=== PATIENT | male | born 1950 ===

== ENCOUNTER 2016-08-08 11:36 | Emergency (ER) | payer OTHER ==
[2016-08-08 11:54] VITALS: BP 135/67; PULSE 80; RESP 18; TEMP 98.1; O2SAT 100
[2016-08-08] MEDS ORDERED: Sodium Chloride 0.9% 1,000 ML IV STA (12:31)
--- NOTE | 2016-08-08 12:38 | ED PDOC ---
HPI: General Adult Time Seen by Provider: 08/08/16 12:09 Chief Complaint (Nursing): Male Genitourinary Chief Complaint (Provider): R lower abd pain History Per: Patient History/Exam Limitations: no limitations Onset/Duration Of Symptoms: Days (5) Have you had recent travel within the past 21 days to any of the following countries: [place], [place], [place] or [place]?: No Current Symptoms Are (Timing): Still Present Additional Complaint(s): R lower groin pain ongoing for 5 days. More now. [place] a bump there. That bump is now gone. No nausea, vomit, diarrhea, weakness, testicular pain, back pain, dysuria. No injury. Reading newspaper when entered room. Past Medical History Reviewed: Nursing Documentation, Vital Signs Vital Signs: Last Vital Signs Temp 98.1 F 08/08/16 11:53 Pulse 80 08/08/16 11:53 Resp 18 08/08/16 11:53 BP 135/67 08/08/16 11:53 Pulse Ox 100 08/08/16 12:41 - Medical History PMH: No Chronic Diseases - Surgical History Surgical History: No Surg Hx - Family History Family History: States: Unknown Family Hx - Social History Current smoker - smoking cessation education provided: No Alcohol: None Drugs: Denies - Home Medications Home Medications: Ambulatory Orders Medication Instructions Recorded Naproxen 500 mg PO BID #30 tab 05/28/16 - Allergies Allergies/Adverse Reactions: Allergies Allergy/AdvReac Type Severity Reaction Status Date / Time No Known Allergies Allergy Verified 08/08/16 12:16 Review of Systems ROS Statement: Except As Marked, All Systems Reviewed And Found Negative Gastrointestinal: Positive for: Abdominal Pain Physical Exam - Reviewed Nursing Documentation Reviewed: Yes Vital Signs Reviewed: Yes - Physical Exam Appears: Positive for: Non-toxic, No Acute Distress Head Exam: Positive for: ATRAUMATIC, NORMAL INSPECTION, NORMOCEPHALIC Skin: Positive for: Normal Color, Warm, DRY Eye Exam: Positive for: EOMI, Normal appearance, PERRL ENT: Positive for: Normal ENT Inspection Neck: Positive for: Normal, Painless ROM Cardiovascular/Chest: Positive for: Regular Rate, Rhythm Respiratory: Positive for: CNT, Normal Breath Sounds Gastrointestinal/Abdominal: Positive for: Bowel Sounds, Soft, Tenderness (Mild R groin; no abscess, boil, or "bump" identified) Male Genital Exam: Negative for: hernia mass (not palpated), scrotum tenderness (R), scrotum tenderness (L), testicular tenderness (R), testicular tenderness (L ) Back: Positive for: Normal Inspection. Negative for: L CVA Tenderness, R CVA Tenderness Extremity: Positive for: Normal ROM Neurologic/Psych: Positive for: Alert, Oriented - Laboratory Results Result Diagrams: 08/08/16 12:47 08/08/16 12:47 Interpretation Of Abn Labs: no acute - ECG O2 Sat by Pulse Oximetry: 100 Pulse Ox Interpretation: Normal - Progress ED Course And Treament: Bilateral fat containing inguinal hernias right larger than left. Inflammatory changes limited to the right inguinal canal. Negative study for bowel obstruction or other acute/ significant abnormality. 1447: Stable. AAOx3. Pain free. Tolerated po. Spoke with Dr. Galvan. Made aware of findings and CT. Wants pt. to be dc and fu clinic. Pt. ambulated with no issues. Disposition - Clinical Impression Clinical Impression: Hernia - Patient ED Disposition Is Patient to be Admitted: No Counseled Patient/Family Regarding: Studies Performed, Diagnosis, Need For Followup - Disposition Referrals: [facility] [Outside] - 08/09/16 Kong Galvan MD [Staff Provider] - 08/09/16 Disposition: Routine/Home Disposition Time: 14:48 Condition: STABLE Additional Instructions: Return if not better in 3 days. Instructions: Inguinal Hernia (ED)
[2016-08-08 13:05] LABS: BASO % 0.3 % (0.0-2.0); EOS # 0.2 K/uL (0.0-0.7); EOS % 3.9 % (0.0-4.0); HEMATOCRIT 41.7 % (35.0-51.0); LYMPH # 1.9 K/uL (1.0-4.3); LYMPH % 31.5 % (20.0-40.0); MEAN CELL VOLUME 82.2 fl (80.0-94.0); MEAN CORPUSCULAR HEMOGLOBIN 26.7 pg (27.0-31.0); MEAN CORPUSCULAR HGB CONC 32.5 g/dL (33.0-37.0); MEAN PLATELET VOLUME 9.4 fl (7.2-11.7); MONO # 0.5 K/uL (0.0-0.8); NEUT # 3.3 K/uL (1.8-7.0); NEUT % 55.3 % (50.0-75.0); NRBC % 0.2 % (0.0-0.0); RED CELL DISTRIBUTION WIDTH 13.6 % (11.5-14.5); WHITE BLOOD COUNT 5.9 K/uL (4.8-10.8)
[2016-08-08 13:21] LABS: ALB/GLOB RATIO 1.3 (1.0-2.1); ALKALINE PHOSPHATASE 74 U/L (38-126); ALT/SGPT 17 U/L (21-72); AST/SGOT 30 U/L (17-59); BILIRUBIN,TOTAL 0.4 mg/dl (0.2-1.3); BLOOD UREA NITROGEN 16 mg/dl (9-20); CALCIUM 9.2 mg/dL (8.4-10.2); CARBON DIOXIDE 30 mmol/L (22-30); CHLORIDE 102 mmol/L (98-107); GFR AFRICAN-AMERICAN > 60; GLUCOSE,RANDOM 91 mg/dL (75-110); POTASSIUM 4.5 MMOL/L (3.6-5.0); SODIUM 145 mmol/l (132-148); TOTAL PROTEIN 7.6 G/DL (6.3-8.2)
--- NOTE | 2016-08-08 14:25 | CT ---
PROCEDURE: CT Abdomen and Pelvis without intravenous contrast HISTORY: hernia possible R groin; painful COMPARISON: None. TECHNIQUE: Unenhanced study. Neither oral nor intravenous contrast administered. Sensitivity and specificity for acute inflammatory processes limited by the absence of oral and intravenous contrast. Radiation dose: Total exam DLP = 408.57 mGy-cm. This CT exam was performed using one or more of the following dose reduction techniques: Automated exposure control, adjustment of the mA and/or kV according to patient size, and/or use of iterative reconstruction technique. FINDINGS: LOWER THORAX: Unremarkable. LIVER: Unremarkable. No gross lesion or ductal dilatation. GALLBLADDER AND BILE DUCTS: Unremarkable. PANCREAS: Unremarkable. No gross lesion or ductal dilatation. SPLEEN: Unremarkable. ADRENALS: Unremarkable. No mass. KIDNEYS AND URETERS: Unremarkable. No hydronephrosis. No solid mass. VASCULATURE: Unremarkable. No aortic aneurysm. BOWEL: Constipation without fecal impaction or obstruction. APPENDIX: Unremarkable. Normal appendix. PERITONEUM: Unremarkable. No free fluid. No free air. LYMPH NODES: Unremarkable. No enlarged lymph nodes. BLADDER: Unremarkable. REPRODUCTIVE: Enlarged prostate. No focal abnormalities. BONES: No acute fracture. OTHER FINDINGS: Bilateral inguinal hernias containing fat only. There are inflammatory changes within the inguinal canal associated with the fat. IMPRESSION: Bilateral fat containing inguinal hernias right larger than left. Inflammatory changes limited to the right inguinal canal. Negative study for bowel obstruction or other acute/ significant abnormality.
== END 2016-08-08 15:20 | disposition home or self-care (01) ==
LOC: H.ER 11:36
DX: K46.9 Unspecified abdominal hernia without obstruction or gangrene (principal); R10.30 Lower abdominal pain, unspecified

== ENCOUNTER 2016-10-12 09:42 | Day surgery (SDC) | payer SELFPAY ==
[2016-10-06 11:26] VITALS: BMI 20.9
[2016-10-12] MEDS ORDERED: Lactated Ringer's 1,000 ML IV ONE (10:19)
[2016-10-12] MEDS ORDERED: Propofol 10 mg/ml Inj (20 ML) ONE (13:15)
[2016-10-12] MEDS ORDERED: Rocuronium 10 mg/ml (5 ml) ONE (13:15)
[2016-10-12] MEDS ORDERED: Dexamethasone 4 mg/1 ml ONE (14:55)
[2016-10-12] MEDS ORDERED: Midazolam 2 MG/2 ML VIAL ONE (14:55)
[2016-10-12] MEDS ORDERED: Succinylcholine 200 mg/10 ml Inj IV ONE (14:55)
[2016-10-12] MEDS ORDERED: ePHEDrine 50 mg/ml Inj ONE (14:55)
[2016-10-12] MEDS ORDERED: Lactated Ringer's 1,000 ML IV SCH (15:21)
--- NOTE | 2016-10-12 15:27 | PCM.SURG1 ---
Surgeon's Initial Post Op Note - Surgeon's Notes Surgeon: Dr. Galvan Parts Department Manager: Dr. Zuniga PGY-1 Type of Anesthesia: General Endo Pre-Operative Diagnosis: Right inguinal hernia, non-incarcerated Operative Findings: see operative report Post-Operative Diagnosis: see operative report Operation Performed: Right inguinal hernia repair w/ mesh Specimen/Specimens Removed: hernia sac Estimated Blood Loss: EBL {In ML}: 10 Blood Products Given: N/A Drains Used: No Drains Post-Op Condition: Good Date of Surgery/Procedure: 10/12/16 Time of Surgery/Procedure: 14:00
[2016-10-12] MEDS: HYDROmorphone 0.5 mg/0.5 ml ISec IVP PRN ×3 (15:55→16:24)
[2016-10-12 17:10] VITALS: RESP 18
[2016-10-12 17:33] VITALS: O2SAT 99
[2016-10-12 19:47] VITALS: BP 134/76; PULSE 100; TEMP 97.8
--- NOTE | 2016-10-13 17:41 | CP.SDSHP ---
Same Day Surgery H & P - Allergies Allergies: Allergies No Known Allergies Allergy (Verified 08/08/16 12:16) Short Stay Discharge - Short Stay Discharge Admitting Diagnosis/Reason for Visit: K40.90 Disposition: HOME/ ROUTINE Medications: Ibuprofen [Motrin Tab] 600 mg PO TID #60 oxyCODONE/Acetaminophen [Percocet 5/325 mg Tab] 5 - 325 mg PO Q4 PRN #20 PRN Reason: Pain, Moderate (4-7) Referrals: Funmi Alicea MD [Primary Care Provider] - Follow-up: [facility] Additional Instructions (Diet, Activity): May remove dressing in 2 days and shower; leave steri strips until they come loose Progress Note/Discharge Note with Instructions: No scrotal or groin swelling. Pain controlled, voiding. Stable postop
--- NOTE | 2016-10-13 19:11 | OP ---
PROCEDURE DATE: 10/12/2016 SURGEON: Dr. Galvan. WEB DEVELOPMENT INTERN: Dr. Zuniga. ANESTHESIA: General, Dr. Yen. PREOPERATIVE DIAGNOSIS: Right inguinal hernia. POSTOPERATIVE DIAGNOSIS: Right inguinal hernia. PROCEDURE: Right inguinal hernia repair with mesh. DESCRIPTION OF OPERATION: With the patient in the supine position under adequate general anesthesia, the right groin was prepped and draped in usual sterile manner. A transverse incision was made in t he right upper groin crease, taken down through the subcutaneous tissue. The external oblique aponeu rosis was identified and cleared and then opened parallel to its fibers from the external inguinal ri ng to the internal inguinal ring. The spermatic cord was identified and dissected free of the underl stacey pelvic floor and elevated over a [place] drain after being dissected at the level of the pubic t ubercle. The pelvic floor was examined and there was no gross direct hernia noted. The spermatic co rd was then explored and an indirect hernia sac was identified and cleared from the underlying cord s tructures back to the internal inguinal ring. At this level the sac was opened and there were no inc arcerated contents. The sac was suture ligated with a 0 Vicryl suture. The internal inguinal ring w as noted to be moderately enlarged and a size medium ProLoop plug was placed medial to the spermatic cord structures into the internal inguinal ring. It was sutured beneath the transversalis fascia wit h a 2-0 Prolene suture. The flat mesh portion of the ProLoop system was then trimmed to approximate the inguinal floor and it was sutured medially adjacent to the pubic tubercle using 2-0 Prolene and t hen sutured superiorly to the transversalis fascia and inferiorly to the shelving edge of the inguina l ligament with the tails being sutured lateral to the internal ring. When this had been completed, the external oblique was reapproximated with running suture of 0 Vicryl. The subcutaneous tissue was approximated with a few 3-0 Vicryl interrupted sutures and closure was performed with running subcut icular suture of 4-0 Monocryl and Steri-Strips. Dry sterile dressing was applied. The patient raina ated the procedure well and transferred to recovery room in stable condition. Estimated blood loss for the procedure was 10 mL. Kong Galvan MD cc: 58 TT: 10/13/2016 19:11:02 jn
== END 2016-10-12 19:56 | disposition home or self-care (01) ==
LOC: H.OPSURG 09:42
PROVIDERS: ATTEND Specialist
DX: K40.90 Unilateral inguinal hernia, without obstruction or gangrene, not specified as recurrent (principal)

== ENCOUNTER 2017-05-17 12:38 | Emergency (ER) | payer OTHER, MEDICARE, SELFPAY ==
[2017-05-17 12:38] VITALS: BMI 20.9
[2017-05-17 12:53] VITALS: BP 135/75; PULSE 86; RESP 18; TEMP 98; O2SAT 98
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
--- NOTE | 2017-05-18 18:10 | CARD ---
APPROVED REPORT EKG Measurement Heart [id number] <Conclusion> Normal sinus rhythm Normal ECG
== END 2017-05-17 15:52 | disposition home or self-care (01) ==
LOC: H.ER 12:38
DX: M54.5 Low back pain (principal); R07.89 Other chest pain; V43.52XA Car driver injured in collision with other type car in traffic accident, initial encounter; Y92.410 Unspecified street and highway as the place of occurrence of the external cause